=== PATIENT | female | born 1990 | race Caucasian/White ===

== ENCOUNTER 2016-07-28 13:52 | Emergency (ER) | payer OTHER ==
[2016-07-28 13:57] VITALS: TEMP 98; BMI 33.5
--- NOTE | 2016-07-28 14:17 | PDOC ---
[id number] No Limitations - History of Present Illness Initial Comments: 07/28/16 14:29 The patient is a 26 year old female with significant past medical history of right kidney stone s/p stent placement 07/19/16 and asthma who presents to the emergency department with right flank pain and hematuria for 9 days. The patient states that she had the stent placed and then corrected, most recent surgery was 9 days ago. She states she has been having pain since the surgery. She tried to see her urologist today but the office rescheduled her appointment for next week. The patient was in constant pain so she came to the ED. Her pain is sharp and constant, does not radiate. She reports associated hematuria. She denies dysuria. She denies recent illness, fevers, or chills. Urologist: Dr. Padilla Rucker PMD: Dr. Love <Gris Gan - Last Filed: 07/28/16 14:30> <Cisco Sandoval - Last Filed: 09/18/16 10:18> - General Chief Complaint: Pain, Acute Stated Complaint: PCP SENT,Rt flank pain, s/p stent Time Seen by Provider: 07/28/16 14:15 Past History <Gris Gan - Last Filed: 07/28/16 14:30> - Past Medical History Asthma: Yes Cardiac Disorders: Yes ([place] 2015) Suicide Attempt (Hx): No - Surgical History Abdominal Surgery: Yes - Immunization History Immunization Up to Date: Yes - Psycho/Social/Smoking Cessation Hx Anxiety: No Suicidal Ideation: No Smoking Status: Yes Smoking History: Current every day smoker Have you smoked in the past 12 months: Yes Number of Cigarettes Smoked Daily: 5 Information on smoking cessation initiated: Yes 'Breaking Loose' booklet given: 07/28/16 Hx Alcohol Use: No Drug/Substance Use Hx: No Substance Use Type: None <Cisco Sandoval - Last Filed: 09/18/16 10:18> - Past Medical History Allergies/Adverse Reactions: Allergies Allergy/AdvReac Type Severity Reaction Status Date / Time No Known Allergies Allergy Verified 07/28/16 13:57 Home Medications: Ambulatory Orders Lactulose 20 gm PO DAILY #7 ml 08/01/16 Oxycodone HCl/Acetaminophen [Percocet 5-325 mg Tablet] 1 tab PO Q4H 08/01/16 Review of Systems - Review of Systems Able to Perform ROS?: Yes Comments:: 07/28/16 14:29 GENERAL/CONSTITUTIONAL: No fever or chills. No weakness. HEAD, EYES, EARS, NOSE AND THROAT: No change in vision. No ear pain or discharge. No sore throat. CARDIOVASCULAR: No chest pain or shortness of breath. RESPIRATORY: No cough, wheezing, or hemoptysis. GASTROINTESTINAL: No nausea, vomiting, diarrhea or constipation. GENITOURINARY: +Hematuria. No dysuria, frequency, or change in urination. MUSCULOSKELETAL: +Right flank pain. No joint or muscle swelling or pain. No neck pain. SKIN: No rash NEUROLOGIC: No headache, vertigo, loss of consciousness, or change in strength/ sensation. ENDOCRINE: No increased thirst. No abnormal weight change. HEMATOLOGIC/LYMPHATIC: No anemia, easy bleeding, or history of blood clots. ALLERGIC/IMMUNOLOGIC: No hives or skin allergy. <Gris Gan - Last Filed: 07/28/16 14:30> *Physical Exam - Vital Signs Last Vital Signs Temp Pulse Resp BP Pulse Ox 98 F 97 H 18 138/88 100 07/28/16 13:55 07/28/16 13:55 07/28/16 13:55 07/28/16 13:55 07/28/16 13:55 - Physical Exam Comments: 07/28/16 14:29 GENERAL: Awake, alert, and fully oriented, in no acute distress HEAD: No signs of trauma EYES: PERRLA, EOMI, sclera anicteric, conjunctiva clear ENT: Auricles normal inspection, hearing grossly normal, nares patent, oropharynx clear without exudates. Moist mucosa NECK: Normal ROM, supple, no lymphadenopathy, JVD, or masses LUNGS: Breath sounds equal, clear to auscultation bilaterally. No wheezes, and no crackles HEART: Regular rate and rhythm, normal S1 and S2, no murmurs, rubs or gallops ABDOMEN: +Right CVA tenderness. Soft, nontender, normoactive bowel sounds. No guarding, no rebound. No masses EXTREMITIES: Normal range of motion, no edema. No clubbing or cyanosis. No cords, erythema, or tenderness NEUROLOGICAL: Cranial nerves II through XII grossly intact. Normal speech, normal gait SKIN: Warm, Dry, normal turgor, no rashes or lesions noted. <Gris Gan - Last Filed: 07/28/16 14:30> - Vital Signs Last Vital Signs Temp Pulse Resp BP Pulse Ox 98 F 97 H 18 138/88 100 07/28/16 13:55 07/28/16 13:55 07/28/16 13:55 07/28/16 13:55 07/28/16 13:55 <Cisco Sandoval - Last Filed: 09/18/16 10:18> ED Treatment Course - LABORATORY CBC & Chemistry Diagram: 07/28/16 15:40 07/28/16 17:12 <Cisco Sandoval - Last Filed: 09/18/16 10:18> *DC/Admit/Observation/Transfer - Attestations Scribe Attestion: 07/28/16 14:29 Documentation prepared by Gris Gan, acting as veterinary medical officer for Cisco Sandoval DO. <Gris Gan - Last Filed: 07/28/16 14:30> - Attestations Physician Attestion: 07/28/16 14:17 I, Dr. Cisco Sandoval, attest that this document has been prepared under my direction and personally reviewed by me in its entirety. I further attest, that it accurately reflects all work, treatment, procedures and medical decision -making performed by me. <Cisco Sandoval - Last Filed: 09/18/16 10:18> Diagnosis at time of Disposition: Pain due to ureteral stent Qualifiers: Encounter type: initial encounter Qualified Code(s): T83.84XA - Pain due to genitourinary prosthetic devices, implants and grafts, initial encounter - Discharge Dispostion Disposition: HOME Condition at time of disposition: Improved - Referrals Referrals: Padilla Rucker MD [Staff Physician] - 3 days - Patient Instructions Additional Instructions: IBUPROFEN, 600 MG 4 TIMES A DAY PLENTY OF FLUIDS (WATER) SEE DR. RUCKER PLANNED RETURN IF WORSENING OR NEW SYMPTOMS
[2016-07-28 15:50] LABS: BASOPHIL 0.5 % (0-2.0); EOSINOPHIL 6.9 % (0-4.5); MCH 31.6 pg (25.7-33.7); MCHC 33.5 g/dl (32.0-36.0); MEAN CELL VOLUME 94.2 fl (80-96); MEAN PLT VOLUME 9.9 fl (7.5-11.1); NEUTROPHILS 64.1 % (42.8-82.8); PLATELET COUNT 203 K/MM3 (134-434); RDW 12.5 % (11.6-15.6); WHITE BLOOD COUNT 6.1 K/mm3 (4.0-10.0)
[2016-07-28 16:09] LABS: INR 1.05 (0.82-1.09); PROTHROMBIN TIME (PATIENT) 11.6 SEC (9.98-11.88)
[2016-07-28] MEDS ORDERED: ONDANSETRON *ODT* 4 MG TABLET SL ONE (16:29)
[2016-07-28] MEDS ORDERED: OXYCODONE/APAP 5/325MG COMBO TABLET PO ONE (16:29)
[2016-07-28] MEDS ORDERED: OXYCODONE/APAP 5/325MG COMBO TABLET ONE (16:32)
[2016-07-28] MEDS ORDERED: ONDANSETRON 8 MG TABLET (FP) PO ONE (16:32)
[2016-07-28 17:24] LABS: PH,URINE 7.5 (5.0-8.0); URINE APPEARANCE CLOUDY; URINE BILIRUBIN NEGATIVE (NEGATIVE); URINE COLOR LT. YELLOW; URINE GLUCOSE (UA) NEGATIVE (NEGATIVE); URINE KETONE NEGATIVE (NEGATIVE); URINE NITRITE NEGATIVE (NEGATIVE); URINE PROTEIN TRACE (NEGATIVE); URINE UROBILINOGEN 0.2 E.U/dl E.U./dl (0.2-1.0)
[2016-07-28 17:26] LABS: URINE BLOOD 3+ (NEGATIVE); URINE LEUK ESTERASE 1+ (NEGATIVE)
[2016-07-28 17:39] LABS: URINE BACTERIA FEW /hpf (NONE SEEN); URINE MUCUS FEW; URINE RBC 80-100 /hpf (0-3)
[2016-07-28 18:03] LABS: ALBUMIN 3.4 g/dl (3.4-5.0); BILIRUBIN,TOTAL 0.4 mg/dL (0.2-1.0); CALCIUM 8.8 mg/dL (8.5-10.1); CREATININE 1.2 mg/dL (0.55-1.02); TOT PROT 6.5 g/dl (6.4-8.2)
[2016-07-28 18:39] VITALS: BP 132/75; PULSE 85
[2016-07-28] MEDS ORDERED: KETOROLAC TROMETHAMINE 30 MG/1 ML VIAL IVPUSH ONE (19:47)
--- NOTE | 2016-07-28 19:52 | PDOC ---
*Physical Exam - Vital Signs Last Vital Signs Temp Pulse Resp BP Pulse Ox 98 F 85 16 132/75 98 07/28/16 13:55 07/28/16 17:05 07/28/16 17:05 07/28/16 17:05 07/28/16 17:05 - Physical Exam General Appearance: Yes: Nourished, Appropriately Dressed. No: Apparent Distress Gastrointestinal/Abdominal: positive: Normal Bowel Sounds, Soft. negative: Tender Musculoskeletal: negative: CVA Tenderness ED Treatment Course - LABORATORY CBC & Chemistry Diagram: 07/28/16 15:40 07/28/16 17:12 - ADDITIONAL ORDERS Additional order review: Laboratory Results 07/28/16 07/28/16 07/28/16 17:12 16:00 15:40 INR Sodium 141 Cancelled Potassium 5.3 H D Cancelled Chloride 111 H Cancelled Carbon Dioxide 25 Cancelled Anion Gap 5 L Cancelled BUN 20 H D Cancelled Creatinine 1.2 H Cancelled Creat Clearance w eGFR 54.30 Cancelled Random Glucose 86 Cancelled Calcium 8.8 Cancelled Total Bilirubin 0.4 D Cancelled AST 16 D Cancelled ALT 19 D Cancelled Alkaline Phosphatase 54 D Cancelled Total Protein 6.5 Cancelled Albumin 3.4 Cancelled Serum , Qual Negative Urine Color Lt. yellow Urine Appearance Cloudy Urine pH 7.5 D Ur Specific [place] 1.020 Urine Protein Trace H Urine Glucose (UA) Negative Urine Ketones Negative Urine Blood 3+ H Urine Nitrite Negative Urine Bilirubin Negative Urine Urobilinogen 0.2 e.u/dl Ur Leukocyte Esterase 1+ H D Urine RBC 80-100 Urine WBC 10-15 Ur Epithelial Cells Few Urine Bacteria Few Urine Mucus Few 07/28/16 15:40 INR 1.05 Sodium Potassium Chloride Carbon Dioxide Anion Gap BUN Creatinine Creat Clearance w eGFR Random Glucose Calcium Total Bilirubin AST ALT Alkaline Phosphatase Total Protein Albumin Serum , Qual Urine Color Urine Appearance Urine pH Ur Specific [place] Urine Protein Urine Glucose (UA) Urine Ketones Urine Blood Urine Nitrite Urine Bilirubin Urine Urobilinogen Ur Leukocyte Esterase Urine RBC Urine WBC Ur Epithelial Cells Urine Bacteria Urine Mucus 07/28/16 15:40 RBC 4.21 MCV 94.2 MCHC 33.5 RDW 12.5 MPV 9.9 Neutrophils % 64.1 Lymphocytes % 21.6 Monocytes % 6.9 Eosinophils % 6.9 H Basophils % 0.5 - Medications Given in the ED: ED Medications Discontinued Medications Generic Name Dose Route Start Last Admin Trade Name Desean PRN Reason Stop Dose Admin Ondansetron HCl 8 mg 07/28/16 16:29 07/28/16 16:38 Zofran Odt - SL 07/28/16 16:30 8 mg ONCE ONE Administration Oxycodone/Acetaminophen 2 combo 07/28/16 16:29 07/28/16 16:38 Percocet 5/325 - PO 07/28/16 16:30 2 combo ONCE ONE Administration Progress Note - Progress Note Progress Note: D/W DR. RUCKER AND PATIENT IBUPROFEN INSTEAD OF NARCOTICS F/U MONDAY *DC/Admit/Observation/Transfer Diagnosis at time of Disposition: Pain due to ureteral stent Qualifiers: Encounter type: initial encounter Qualified Code(s): T83.84XA - Pain due to genitourinary prosthetic devices, implants and grafts, initial encounter - Discharge Dispostion Disposition: HOME Condition at time of disposition: Improved - Referrals Referrals: Padilla Rucker MD [Staff Physician] - 3 days - Patient Instructions Additional Instructions: IBUPROFEN, 600 MG 4 TIMES A DAY PLENTY OF FLUIDS (WATER) SEE DR. RUCKER PLANNED RETURN IF WORSENING OR NEW SYMPTOMS
[2016-07-28] MEDS ORDERED: KETOROLAC TROMETHAMINE 30 MG/1 ML VIAL ONE (19:54)
== END 2016-07-28 20:10 | disposition home or self-care (01) ==
LOC: JER 13:52
PROC: 3E0333Z Introduction of Anti-inflammatory into Peripheral Vein, Percutaneous Approach (ICD-10-PCS; principal; 2016-07-28)
DX: T83.84XA Pain due to genitourinary prosthetic devices, implants and grafts, initial encounter (principal)
CPT/HCPCS: 36415; 74176-TC; 80053; 81003; 81015; 84703; 85025; 85610; 99282-25

== ENCOUNTER 2016-08-01 15:43 | Emergency (ER) | payer OTHER ==
[2016-08-01 15:48] VITALS: TEMP 98.1; BMI 33.5
[2016-08-01] MEDS ORDERED: KETOROLAC TROMETHAMINE 30 MG/1 ML VIAL IM ONE (19:45)
[2016-08-01] MEDS ORDERED: KETOROLAC TROMETHAMINE 30 MG/1 ML VIAL ONE (19:57)
--- NOTE | 2016-08-01 20:02 | PDOC ---
History of Present Illness - General Chief Complaint: Pain, Acute Stated Complaint: KIDNEY PAIN Time Seen by Provider: 08/01/16 19:32 - History of Present Illness Initial Comments: 08/01/16 20:01 CHIEF COMPLAINT: 26 yo F HISTORY OF PRESENT ILLNESS: 26 year old female with significant past medical history of right kidney stone (s/p stent placement 07/19/16) and asthma returns to the emergency department with right flank pain and hematuria for 9 days. The patient states that she had the stent placed and then corrected, most recent surgery was 9 days ago. She states she has been having pain since the surgery. She denies any nausea, vomiting, or diarrhea. Patient was seen No recent travel or sick contacts. PAST MEDICAL HISTORY: Denies past medical history FAMILY HISTORY: Denies SOCIAL HISTORY:Denies tobacco, alcohol, illicit drug use. SURGICAL HISTORY: Denies ALLERGIES: No known drug allergies REVIEW OF SYSTEMS General/Constitutional: Denies fever or chills. Denies weakness, weight change. HEENT: Denies change in vision. Denies ear pain or discharge. Denies sore throat. Cardiovascular: Denies chest pain or shortness of breath. Respiratory: Denies cough, wheezing, or hemoptysis. Gastrointestinal: RLQ pain. Denies nausea, vomiting, diarrhea. Genitourinary: Denies dysuria, frequency, or change in urination. Musculoskeletal: Denies joint or muscle swelling or pain. Denies neck or back pain. Skin and breasts: Denies rash or easy bruising. Neurologic: Denies headache, vertigo, loss of consciousness, or loss of sensation. PHYSICAL EXAM General Appearance: Well-appearing, appropriately dressed. No apparent distress , no intoxication. HEENT: EOMI, PERRLA, normal ENT inspection, normal voice, TMs normal, pharynx normal. No conjunctival pallor. No photophobia, scleral icterus. Neck: Supple. Trachea midline. No tenderness, rigidity, carotid bruit, stridor , lymphadenopathy, or thyromegaly. Respiratory/Chest: Lungs CTAB. No shortness of breath, chest tenderness, respiratory distress, accessory muscle use. No crackles, rales, rhonchi, stridor , wheezing, dullness Cardiovascular: RRR. S1, S2. No JVD, murmur, bradycardia, tachycardia. Vascular Pulses: Dorsalis-Pedis (R): 2+, Dorsalis-Pedis (L): 2+ Gastrointestinal/Abdominal: RLQ tenderness. Normal bowel sounds. Abdomen soft, non-distended. No tenderness or rebound tenderness. No organomegaly, pulsatile mass, guarding, hernia, hepatomegaly, splenomegaly. Lymphatic: No adenopathy, tenderness. Musculoskeletal/Extremities: Normal inspection. FROM of all extremities, normal capillary refill. Pelvis Stable. No CVA tenderness. No tenderness to extremities, pedal edema, swelling, erythema or deformity. Integumentary: Appropriate color, dry, warm. No cyanosis, erythema, jaundice or rash Neurologic: channel marketing program manager II-XII intact. Fully oriented, alert. Appropriate mood/affect. Motor strength 5/5. No appreciable EOM palsy, facial droop or sensory deficit. Past History - Past Medical History Allergies/Adverse Reactions: Allergies Allergy/AdvReac Type Severity Reaction Status Date / Time No Known Allergies Allergy Verified 08/01/16 15:46 Home Medications: Ambulatory Orders Lactulose 20 gm PO DAILY #7 ml 08/01/16 Oxycodone HCl/Acetaminophen [Percocet 5-325 mg Tablet] 1 tab PO Q4H 08/01/16 Asthma: Yes Cardiac Disorders: Yes ([place] 2015) Suicide Attempt (Hx): No - Surgical History Abdominal Surgery: Yes - Immunization History Immunization Up to Date: Yes - Psycho/Social/Smoking Cessation Hx Anxiety: No Suicidal Ideation: No Smoking Status: Yes Smoking History: Current every day smoker Have you smoked in the past 12 months: Yes Number of Cigarettes Smoked Daily: 5 Information on smoking cessation initiated: No 'Breaking Loose' booklet given: 07/28/16 Hx Alcohol Use: No Drug/Substance Use Hx: No Substance Use Type: None *Physical Exam - Vital Signs Last Vital Signs Temp Pulse Resp BP Pulse Ox 98.1 F 77 18 120/72 99 08/01/16 15:47 08/01/16 15:47 08/01/16 15:47 08/01/16 15:47 08/01/16 15:47 Medical Decision Making - Medical Decision Making 08/01/16 22:28 26 year old female with significant past medical history of right kidney stone ( s/p stent placement 07/19/16) and asthma returns to the emergency department with right flank pain and hematuria for 9 days. At this time she reports that her last bowel movement was 3 days ago and she reports that she is has not been passing gas today. She now reports that she has been nauseous for the past few days. Abdominal x-ray, r/o SBO. X-ray with no evidence of SBO, large amount of stool. Will discharge patient with Lactulose and close follow up. Advised patient to take medication as prescribed and follow up with urologist for further evaluation and management of kidney pain. Advised patient of signs and symptoms for return to ER; patient verbalized understanding and agrees to plan. *DC/Admit/Observation/Transfer Diagnosis at time of Disposition: Constipation Qualifiers: Constipation type: unspecified constipation type Qualified Code(s): K59.00 - Constipation, unspecified - Discharge Dispostion Disposition: HOME Condition at time of disposition: Stable Admit: No - Prescriptions Prescriptions: Lactulose 20 gm PO DAILY #7 ml - Referrals Referrals: Onesimo Love MD [Primary Care Provider] - - Patient Instructions Printed Discharge Instructions: DI for Constipation, Increased Dietary Fiber May Improve Constipation Conditions With Pelvic Jourdan Additional Instructions: Please take medication as prescribed and follow up with your primary care doctor by the end of the week. Please keep your appointment with your urologist on . If you experience any fever, vomiting, diarrhea, blood in your urine or bowel movements, or any new or worsening symptoms, please return to the ER.
--- NOTE | 2016-08-01 20:04 | PDOC ---
*Physical Exam - Vital Signs Last Vital Signs Temp Pulse Resp BP Pulse Ox 98.1 F 77 18 120/72 99 08/01/16 15:47 08/01/16 15:47 08/01/16 15:47 08/01/16 15:47 08/01/16 15:47 Medical Decision Making - Medical Decision Making 08/01/16 20:04 agree with care from ARTURO Collins *DC/Admit/Observation/Transfer Diagnosis at time of Disposition: Constipation - Discharge Dispostion Disposition: HOME Condition at time of disposition: Stable - Prescriptions Prescriptions: Lactulose 20 gm PO DAILY #7 ml - Referrals Referrals: Onesimo Love MD [Primary Care Provider] - - Patient Instructions Printed Discharge Instructions: Increased Dietary Fiber May Improve Constipation Conditions With Pelvic Jourdan, DI for Constipation Additional Instructions: Please take medication as prescribed and follow up with your primary care doctor by the end of the week. Please keep your appointment with your urologist on . If you experience any fever, vomiting, diarrhea, blood in your urine or bowel movements, or any new or worsening symptoms, please return to the ER.
[2016-08-01] MEDS ORDERED: traMADol HCL 50 MG TABLET PO ONE (23:16)
[2016-08-01] MEDS ORDERED: traMADol HCL 50 MG TABLET ONE (23:24)
[2016-08-02 00:08] VITALS: BP 122/76; PULSE 82
== END 2016-08-02 00:12 | disposition home or self-care (01) ==
LOC: JER 15:43
PROC: 3E0233Z Introduction of Anti-inflammatory into Muscle, Percutaneous Approach (ICD-10-PCS; principal; 2016-08-01)
DX: K59.00 Constipation, unspecified (principal); Z98.890 Other specified postprocedural states
CPT/HCPCS: 74020-TC; 84703; 96372; 99282-25

== ENCOUNTER 2017-02-17 19:07 | Emergency (ER) | payer OTHER ==
--- NOTE | 2017-02-17 19:14 | PDOC ---
History of Present Illness - History of Present Illness Initial Comments: 02/17/17 20:00 The patient is a 27 year old female, with no significant past medical history, who presents to the emergency department with right ankle blister. Patient believes she was bitten by a spider. Pain radiates from her medial calf down to her ankle. The bite was initially white in color and grew considerably in size and is now blistered. The area around the bite is erythematous. The area is warm , painful and doesnt itch. She states pressure makes it worse. Elevating her leg helps lessen the pain. She said she took Motrin and it didn't help. She also reports diarrhea (x4) today. She denies recent fevers, chills, headache or dizziness. She denies recent nausea, vomit, constipation. She denies recent dysuria, frequency, urgency or hematuria. She denies recent chest pain or shortness of breath. PMH: Allergies: NKA PCP: Onesimo Love <Tracy Summers - Last Filed: 02/17/17 21:07> <Dre Samuel - Last Filed: 02/26/17 15:04> - General Chief Complaint: Redness To Affected Area Stated Complaint: RIGHT ANKLE REDNESS Time Seen by Provider: 02/17/17 19:09 Past History <Tracy Summers - Last Filed: 02/17/17 21:07> - Past Medical History Asthma: Yes Cardiac Disorders: Yes ([place], [place] 2015) - Surgical History Abdominal Surgery: Yes - Immunization History Immunization Up to Date: Yes - Suicide/Smoking/Psychosocial Hx Smoking Status: Yes Smoking History: Current every day smoker Have you smoked in the past 12 months: Yes Number of Cigarettes Smoked Daily: 5 'Breaking Loose' booklet given: 07/28/16 Hx Alcohol Use: No Drug/Substance Use Hx: No Substance Use Type: None <Dre Samuel - Last Filed: 02/26/17 15:04> - Past Medical History Allergies/Adverse Reactions: Allergies Allergy/AdvReac Type Severity Reaction Status Date / Time No Known Allergies Allergy Verified 02/17/17 19:09 Home Medications: Ambulatory Orders Naproxen [Naprosyn -] 375 mg PO BID PRN #30 tablet 02/17/17 Sulfamethoxazole/Trimethoprim [Bactrim Ds -] 1 tab PO BID #14 tablet 02/17/17 Review of Systems - Review of Systems Comments:: 02/17/17 20:00 CONSTITUTIONAL: Present: Diarrhea Absent: Fever, Chills, Diaphoresis, Generalized Weakness, Malaise, Loss of Appetite HEENT: Absent: Rhinorrhea, Nasal Congestion, Throat Pain, Throat Swelling, Difficulty Swallowing, Mouth Swelling, Ear Pain, Eye Pain, Visual Changes CARDIOVASCULAR: Absent: Chest Pain, Syncope, Palpitations, Irregular Heart Rate, Lightheadedness , Peripheral Edema MUSCULOSKELETAL: Absent: Myalgia, Arthralgia, Joint Swelling, Back pain, Neck Pain SKIN: Present: +right buenrostro errythema. +pus-filled blister Absent: Itching, Pallor <Tracy Summers - Last Filed: 02/17/17 21:07> *Physical Exam - Vital Signs Last Vital Signs Temp Pulse Resp BP Pulse Ox 98.2 F 99 H 16 120/80 98 02/17/17 19:08 02/17/17 19:08 02/17/17 19:08 02/17/17 19:08 02/17/17 19:08 - Physical Exam Comments: 02/17/17 20:14 GENERAL: The patient is awake, alert, and fully oriented, in no acute distress. HEAD: Normal with no signs of trauma. EYES: Pupils equal, round and reactive to light, extraocular movements intact, sclera anicteric, conjunctiva clear. EXTREMITIES: Normal range of motion. Sensation intact. Circulation intact. NEUROLOGICAL: Normal speech, normal gait. PSYCH: Normal mood, normal affect. SKIN: + Silver dollar sized blister on the right medial buenrostro with clear fluid and pus inside. Surrounding erythema radiating out from the wound. <Tracy Summers - Last Filed: 02/17/17 21:07> Procedures - Incision and Drainage I&D Site: Right: Leg Betadine cleansed: Yes Blade Size: 10 Dressing: Yes Progress: 02/17/17 21:00 Patient presents after an insect bite yesterday to her right leg. There is a large blister containing both clear fluid and pus on the right leg. Sterile skin prep with Betadine. Blister opened with a scalpel, pus drained, irrigated with normal saline. Bacitracin applied, dry sterile dressing applied with guaze and elastic bandage. <Dre Samuel - Last Filed: 02/26/17 15:04> Medical Decision Making - Medical Decision Making 02/17/17 21:02 Patient here with an insect bite from yesterday. There is a large central blister on examination with both clear fluid and cheesy pus material. There is surrounding erythema on the right medial calf. Patient denies fever. She has no other significant past medical history. The blister was opened to drain the pus. Culture was sent. Bactrim was started. Patient given Naprosyn for pain. Dry sterile dressing applied. Patient advised regarding wound care and indications for follow-up. She will go to Dr. Pollock next week, her primary M.D. for follow-up of the wound. 02/26/17 15:03 The scribe's documentation has been prepared under my direction and personally reviewed by me in its entirety. I have confirmed that the note above accurately reflects all work, treatment, procedures, and medical decision- making performed by me. 02/26/17 15:04 Patient was placed on Bactrim at the time of her visit. Her culture grew MRSA sensitive to Bactrim. No change in antibiotics was indicated. <Dre Samuel - Last Filed: 02/26/17 15:04> *DC/Admit/Observation/Transfer - Attestations Scribe Attestion: 02/17/17 20:03 Documentation prepared by Tracy Summers, acting as senior medical transcriptionist for Dre Samuel MD. <Tracy Summers - Last Filed: 02/17/17 21:07> - Discharge Dispostion Admit: No <Dre Samuel - Last Filed: 02/26/17 15:04> Diagnosis at time of Disposition: Insect bite Qualifiers: Encounter type: initial encounter Qualified Code(s): W57.XXXA - Bitten or stung by nonvenomous insect and other nonvenomous arthropods, initial encounter Cellulitis Qualifiers: Site of cellulitis of extremity: lower extremity Laterality: right - Discharge Dispostion Disposition: HOME Condition at time of disposition: Good - Prescriptions Prescriptions: Sulfamethoxazole/Trimethoprim [Bactrim Ds -] 1 tab PO BID #14 tablet Naproxen [Naprosyn -] 375 mg PO BID PRN #30 tablet PRN Reason: Pain - Referrals Referrals: Onesimo Love MD [Primary Care Provider] - 3 days - Patient Instructions Printed Discharge Instructions: Tips to Help You Stop Smoking, DI for Insect Bites and Stings Additional Instructions: You were evaluated today for an insect bite to her right leg. There was blister formation which was opened to drain the pus. There is redness around the wound which will be treated with antibiotics. A prescription for antibiotics as well as pain medication has been sent here pharmacy electronically. Start the medication tomorrow morning. Follow-up with Dr. Pollock on Monday for a wound check. Return to the emergency department for any progression of symptoms such as increasing redness, fever, or any other serious symptoms.
[2017-02-17 19:43] VITALS: BP 120/80; PULSE 99; TEMP 98.2; BMI 35.5
[2017-02-17] MEDS ORDERED: SULFAMETHOXAZOLE/TRIMETHOPRIM 800MG/160MG D.S. TABLET PO ONE (20:07)
[2017-02-17] MEDS ORDERED: NAPROXEN 375 MG TABLET (FP) PO ONE ×2 (20:07→20:30)
[2017-02-17] MEDS ORDERED: SULFAMETHOXAZOLE/TRIMETHOPRIM 800MG/160MG D.S. TABLET ONE (20:20)
[2017-02-17] MEDS ORDERED: NAPROXEN 500 MG TABLET (FP) ONE (21:06)
--- NOTE | 2017-02-19 18:04 | PDOC ---
Patient Follow-up (Call Back) - Post ED Follow - Up Condition at time of discharge: Good Disposition at time of original discharge: HOME Reason for Call Back: Abnwl. Microbiology - Disposition Rx Needed: No Additional Instructions/Notes: Received a call from lab regarding wound culture - growing presumptive MRSA. Called pt's home phone number and left message with family member with instructions for pt to call back to ER. Pt was prescribed Bactrim on initial evaluation 2 days ago - no need for change in abx regimen.
== END 2017-02-17 21:18 | disposition home or self-care (01) ==
LOC: FER 19:07
DX: S91.051A Open bite, right ankle, initial encounter (principal); W57.XXXA Bitten or stung by nonvenomous insect and other nonvenomous arthropods, initial encounter; Y93.89 Activity, other specified; Y92.9 Unspecified place or not applicable; F17.210 Nicotine dependence, cigarettes, uncomplicated; J45.909 Unspecified asthma, uncomplicated; R01.1 Cardiac murmur, unspecified
CPT/HCPCS: 87070; 87186; 87205; 99281-25

== ENCOUNTER 2017-03-15 18:40 | Emergency (ER) | payer OTHER ==
[2017-03-15 18:44] VITALS: BP 126/79; PULSE 102; TEMP 98.6; BMI 35.5
[2017-03-15 19:31] LABS: PH,URINE 5.5 (4.5-8); URINE APPEARANCE Clear; URINE BILIRUBIN Negative (NEGATIVE); URINE BLOOD Negative (NEGATIVE); URINE GLUCOSE (UA) Negative (NEGATIVE); URINE KETONE Trace (NEGATIVE); URINE NITRITE Negative (NEGATIVE); URINE PROTEIN Negative (NEGATIVE); URINE UROBILINOGEN 0.2 (0.2-1.0)
[2017-03-15 19:33] LABS: URINE COLOR YELLOW; URINE LEUK ESTERASE 2+ (NEGATIVE)
--- NOTE | 2017-03-15 19:46 | PDOC ---
History of Present Illness - General History Source: Patient Exam Limitations: No Limitations - History of Present Illness Initial Comments: 03/15/17 19:58 The patient is a 27 year old female with significant history of asthma, COPD, and cigarette smoking, who presents to the ED complaining of approximately 3 weeks of persistent nausea, diarrhea, and productive cough with associate fever (Tmax 103). She describes her diarrhea as greenish in color and watery in nature with several episodes occuring per day. Her cough is productive with yellow sputum with associated chest discomfort and mild SOB. She also complains of associated generalized headache and generalized malaise. The patient denies abdominal pain, vomiting, or constipation. No true chest pain. No urinary complaints. LMP March 11. Not up to date on this year's flu vaccination. <Twila Dubon - Last Filed: 03/15/17 20:24> <Edwin Valdes - Last Filed: 03/16/17 01:46> - General Chief Complaint: Vomiting/Diarrhea Stated Complaint: vomiting,diarrhea Time Seen by Provider: 03/15/17 19:40 Past History <Twila Dubon - Last Filed: 03/15/17 20:24> - Past Medical History Asthma: Yes Cardiac Disorders: Yes ([place], [place] 2014) COPD: No Kidney Stones: Yes (ST[place]) - Surgical History Abdominal Surgery: Yes - Immunization History Immunization Up to Date: Yes - Suicide/Smoking/Psychosocial Hx Smoking Status: Yes Smoking History: Current every day smoker Have you smoked in the past 12 months: Yes Number of Cigarettes Smoked Daily: 5 Information on smoking cessation initiated: Yes 'Breaking Loose' booklet given: 03/15/17 Hx Alcohol Use: No Drug/Substance Use Hx: No Substance Use Type: None <Edwin Valdes - Last Filed: 03/16/17 01:46> - Past Medical History Allergies/Adverse Reactions: Allergies Allergy/AdvReac Type Severity Reaction Status Date / Time No Known Allergies Allergy Verified 03/15/17 18:41 Home Medications: Ambulatory Orders Fexofenadine/Pseudoephedrine [Patricia-D 24 Hour Tablet] 1 tab PO DAILY #10 tab.er.24h 03/15/17 Guaifenesin AC [Robitussin AC] 10 ml PO TID PRN #90 ml MDD 30 03/15/17 Naproxen [Naprosyn] 375 mg PO BID #14 tablet 03/15/17 Respiratory Specific PMHX - Complaint Specific PMHX Angina: No Bronchitis: No Pneumonia: No Pulmonary Embolus: No TB (Tuberculosis): No <Edwin Valdes - Last Filed: 03/16/17 01:46> Review of Systems - Review of Systems Able to Perform ROS?: Yes Comments:: 03/15/17 20:02 GENERAL/CONSTITUTIONAL: +Fever (tmax 103), +malaise HEAD, EYES, EARS, NOSE AND THROAT: No change in vision. No ear pain or discharge. No sore throat. GASTROINTESTINAL: +Nausea, multiple episodes of diarrhea. No blood per rectum. No abdominal pain, vomiting, constipation. GENITOURINARY: No dysuria, frequency, or change in urination. CARDIOVASCULAR: No true chest pain or palpitations. RESPIRATORY: +Productive cough w yellow sputum, +mild dyspnea. No hemoptysis. MUSCULOSKELETAL: No joint or muscle swelling or pain. No neck or back pain. SKIN: No rash NEUROLOGIC: +Diffuse QUEVEDO. No vertigo, loss of consciousness, or change in strength/sensation. ENDOCRINE: No increased thirst. No abnormal weight change. HEMATOLOGIC/LYMPHATIC: No anemia, easy bleeding, or history of blood clots. ALLERGIC/IMMUNOLOGIC: No hives or skin allergy. <Twila Dubon - Last Filed: 03/15/17 20:24> *Physical Exam - Vital Signs Last Vital Signs Temp Pulse Resp BP Pulse Ox 98.6 F 102 H 18 126/79 100 03/15/17 18:40 03/15/17 18:40 03/15/17 18:40 03/15/17 19:55 03/15/17 18:40 - Physical Exam Comments: 03/15/17 20:05 GENERAL: Awake, alert, and fully oriented, in no acute distress HEAD: No signs of trauma EYES: PERRLA, EOMI, sclera anicteric, conjunctiva clear ENT: +Mildly injected throat with no exudates, swelling, or masses. +Mild to moderate nasal congestion, no discharge or drainage. Auricles normal inspection , hearing grossly normal. Moist mucosa NECK: Normal ROM, supple, no lymphadenopathy, JVD, or masses LUNGS: Breath sounds equal, clear to auscultation bilaterally. No wheezes, and no crackles HEART: Regular rate and rhythm, normal S1 and S2, no murmurs, rubs or gallops ABDOMEN: Soft, nontender, normoactive bowel sounds. No guarding, no rebound. No masses. No CABT. EXTREMITIES: Normal range of motion, no edema. No clubbing or cyanosis. No cords, erythema, or tenderness BACK: No midline spinal tenderness in cervical/thoracic/lumbar region NEUROLOGICAL: Normal speech, cranial nerves intact, negative pronator drift, 5/ 5 strength in all 4 extremities, normal sensation to light touch in all 4 extremities, normal cerebellar exam, normal gait, normal reflexes and tone SKIN: Warm, Dry, normal turgor, no rashes or lesions noted. <Twila Dubon - Last Filed: 03/15/17 20:24> - Vital Signs Last Vital Signs Temp Pulse Resp BP Pulse Ox 98.6 F 102 H 18 126/79 100 03/15/17 18:40 03/15/17 18:40 03/15/17 18:40 03/15/17 18:40 03/15/17 18:40 <Edwin Valdes - Last Filed: 03/16/17 01:46> ED Treatment Course - LABORATORY CBC & Chemistry Diagram: 03/15/17 19:55 03/15/17 19:55 - ADDITIONAL ORDERS Additional order review: Laboratory Results 03/15/17 19:25 Urine Color Yellow Urine Appearance Clear Urine pH 5.5 Ur Specific Wellman >= 1.030 H Urine Protein Negative Urine Glucose (UA) Negative Urine Ketones Trace Urine Blood Negative Urine Nitrite Negative Urine Bilirubin Negative Urine Urobilinogen 0.2 Ur Leukocyte Esterase 2+ H Urine RBC 0-2 Urine WBC 20-30 Ur Epithelial Cells Few Urine Bacteria Moderate Urine HCG, Qual Negative <Twila Dubon - Last Filed: 03/15/17 20:24> - LABORATORY CBC & Chemistry Diagram: 03/15/17 19:55 03/15/17 19:55 - ADDITIONAL ORDERS Additional order review: Laboratory Results 03/15/17 19:25 Urine Color Yellow Urine Appearance Clear Urine pH 5.5 Ur Specific Wellman >= 1.030 H Urine Protein Negative Urine Glucose (UA) Negative Urine Ketones Trace Urine Blood Negative Urine Nitrite Negative Urine Bilirubin Negative Urine Urobilinogen 0.2 Ur Leukocyte Esterase 2+ H Urine HCG, Qual Negative <Edwin Valdes - Last Filed: 03/16/17 01:46> Medical Decision Making - Medical Decision Making 03/16/17 01:43 URI symptoms, nonproductive cough, nausea vomiting and diarrhea, all suggestive of a viral syndrome, possibly flu. Nobody else however is ill in the family, and the symptoms have been present over 1 week. CBC, chemistries, and urinalysis with no significant abnormalities other than a urine specific gravity of greater than 1030 and the presence of 20 white blood cells. Tamiflu unlikely to be of benefit, symptomatic treatment and close follow-up as directed Pyuria present, but no urinary tract symptoms, culture sent and further treatment if culture is positive. Patient with symptoms much improved after intravenous hydration and Toradol. Fully ambulatory and in no significant pain or other distress upon discharge with her family to follow-up as directed. <Edwin Valdes - Last Filed: 03/16/17 01:46> *DC/Admit/Observation/Transfer - Attestations Scribe Attestion: 03/15/17 20:07 Documentation prepared by Twila Dubon, acting as biomedical engineering aide for Edwin Valdes MD. <Twila Dubon - Last Filed: 03/15/17 20:24> - Discharge Dispostion Admit: No <Edwin Valdes - Last Filed: 03/16/17 01:46> Diagnosis at time of Disposition: Viral syndrome - Discharge Dispostion Disposition: HOME Condition at time of disposition: Improved - Prescriptions Prescriptions: Fexofenadine/Pseudoephedrine [Patricia-D 24 Hour Tablet] 1 tab PO DAILY #10 tab.er.24h Naproxen [Naprosyn] 375 mg PO BID #14 tablet Guaifenesin AC [Robitussin AC] 10 ml PO TID PRN #90 ml MDD 30 PRN Reason: cough and congestion - Patient Instructions Printed Discharge Instructions: DI for Viral Upper Respiratory Infection -- Adult, DI for Viral Gastroenteritis -- Adult Additional Instructions: Rest, lots of fluids, medication as directed. Do not take additional Tylenol, Motrin, Advil, ibuprofen, Aleve, or Naprosyn if taking the prescriptions that were dispensed. See primary physician if no improvement 2-3 days. Return to ER if symptoms worsen or there is high fever, difficulty breathing or swallowing, chest pain, or shortness of breath. - Post Discharge Activity Forms/Work/School Notes: Back to Work
[2017-03-15] MEDS ORDERED: SODIUM CHLORIDE 1,000 ML IV STA (19:47)
[2017-03-15 19:53] LABS: URINE BACTERIA MODERATE /hpf (NEGATIVE); URINE RBC 0-2 /hpf (0-3); URINE WBC 20-30 (3-5)
[2017-03-15 20:10] LABS: BASOPHIL 0.6 % (0-2.0); EOSINOPHIL 4.1 % (0-4.5); MCH 30.7 pg (25.7-33.7); MCHC 33.4 g/dl (32.0-36.0); MEAN CELL VOLUME 91.7 fl (80-96); MEAN PLT VOLUME 9.7 fl (7.5-11.1); NEUTROPHILS 58.4 % (42.8-82.8); PLATELET COUNT 198 K/MM3 (134-434); RDW 12.3 % (11.6-15.6); WHITE BLOOD COUNT 5.1 K/mm3 (4.0-10.8)
[2017-03-15 20:21] LABS: ALBUMIN 3.6 g/dl (3.5-5.0); ALK PHOS 51 U/L (32-92); ANION GAP 4 (8-16); BILIRUBIN,TOTAL 0.5 mg/dl (0.2-1.0); CALCIUM 9.3 mg/dl (8.4-10.2); CO2 26 mmol/L (22-28); CREATININE 0.8 mg/dl (0.6-1.3); GLUCOSE,RANDOM 108 mg/dl (74-106); SGOT/AST 19 U/L (10-42); SGPT/ALT 14 U/L (10-40); TOT PROT 6.7 g/dl (6.4-8.3)
[2017-03-15] MEDS ORDERED: KETOROLAC TROMETHAMINE 30 MG/1 ML VIAL IVPUSH ONE (20:35)
[2017-03-15] MEDS ORDERED: LORATADINE 10 MG TABLET PO ONE (20:36)
[2017-03-15] MEDS ORDERED: LORATADINE 10 MG TABLET ONE (20:38)
[2017-03-15] MEDS ORDERED: KETOROLAC TROMETHAMINE 30 MG/1 ML VIAL ONE (20:38)
== END 2017-03-15 22:23 | disposition home or self-care (01) ==
LOC: FER 18:40
PROC: 3E0333Z Introduction of Anti-inflammatory into Peripheral Vein, Percutaneous Approach (ICD-10-PCS; principal; 2017-03-15)
PROC: 3E0337Z Introduction of Electrolytic and Water Balance Substance into Peripheral Vein, Percutaneous Approach (ICD-10-PCS; 2017-03-15)
DX: B34.9 Viral infection, unspecified (principal); J44.9 Chronic obstructive pulmonary disease, unspecified; F17.210 Nicotine dependence, cigarettes, uncomplicated; R01.1 Cardiac murmur, unspecified; I25.2 Old myocardial infarction
CPT/HCPCS: 36415; 80053; 81003; 81015; 84703; 85025; 87086; 96361; 96374; 99282-25

== ENCOUNTER 2017-09-16 21:14 | Emergency (ER) | payer OTHER ==
[2017-09-16 21:31] VITALS: PULSE 88; TEMP 99.2; BMI 34.4
--- NOTE | 2017-09-16 21:35 | PDOC ---
History of Present Illness - General Chief Complaint: Weakness Stated Complaint: GENERALIZED BODYACHE Time Seen by Provider: 09/16/17 21:29 History Source: Patient Exam Limitations: No Limitations - History of Present Illness Initial Comments: 09/16/17 23:08 This is a 27-year-old female who has history of epigastric discomfort in the past. Patient comes in complaining of epigastric discomfort times all day today. Patient denies any fevers or chills. Patient said she had a similar episode in the past that was she went to [facility] for and had a workup including a CAT scan. Patient was referred to a GI doctor. But was not told what the diagnosis was. Patient denies taking any medication for it or any other medical problems. Patient denies any urinary frequency, dysuria hematuria or back or flank pain. PAST MEDICAL HISTORY: no significant history PAST SURGICAL HISTORY: no significant history FAMILY HISTORY: no pertinant history SOCIAL HISTORY: Pt lives with family and is employed. MEDICATIONS: reviewed ALLERGIES: As per nursing notes Review of Systems General: No fevers or chills, no weakness, no weight loss HEENT: No change in vision. No sore throat,. No ear pain CardioVascular: No chest pain or shortness of breath Respiratory:No cough, or wheezing. Gastrointestinal: no nausea, vomitting, diarrhea or constipation, No rectal bleeding, abdominal pain as per history of present illness Genitourinary: No dysuria, hematuria, or frequency Musculoskeletal: No joint or muscle pain or swelling Neurologic: No headache, vertigo, dizziness or loss of consciousness Psychiatric: nor depression Skin: No rashes or easy bruising Endocrine: no increased thirst or abnormal weight change Allergic: no skin or latex allergy All other systems reviewed and normal Exam: General: Well-nourished well-developed individual, no acute distress HEENT: Throat: Normal, tonsils normal, no erythema or exudate Neck: Supple, no meningeal signs, no lymphadenopathy Eyes::Pupils equal reactive and round, extraocular motion intact Chest: Nontender to palpation Cardiac: S1-S2 normal, regular rate and rhythm, no murmurs rubs or gallops Respiratory: Lungs clear to auscultation bilateral Abdomen: Soft, nondistended, normal bowel sounds, there is some mild to moderate tenderness epigastric and right upper quadrant, there is no guarding or rebound Extremities: Warm dry no cyanosis clubbing or edema Skin: No rashes Neuro: Alert and oriented x3, CN II - XII intact, nonfocal exam with normal strength, normal sensation, normal reflexes, normal gait, Psych: Normal mood and affect Ultrasound shows no acute pathology Assessment and plan: This is a 27-year-old female who comes in complaining of epigastric pain on workup patient was noted to have a urinary tract infection. She also had an ultrasound that was negative for gallstones, kidney stones or any renal pathology. Patient treated for her urinary tract infection. Patient was also noted on ultrasound to have a large gas bubble in the area of the discomfort. Patient was given simethicone and discharged. Patient told to keep her appointment with her GI specialist. Past History - Past Medical History Allergies/Adverse Reactions: Allergies Allergy/AdvReac Type Severity Reaction Status Date / Time No Known Allergies Allergy Verified 09/16/17 21:16 Home Medications: Ambulatory Orders Nitrofurantoin Macrocrystal [Macrodantin] 100 mg PO BID #14 capsule 09/16/17 Asthma: Yes Cardiac Disorders: Yes ([place], [place] 2015) COPD: No Kidney Stones: Yes ([place]) - Surgical History Abdominal Surgery: Yes - Immunization History Immunization Up to Date: Yes - Suicide/Smoking/Psychosocial Hx Smoking Status: Yes Smoking History: Never smoked Have you smoked in the past 12 months: Yes Number of Cigarettes Smoked Daily: 5 Information on smoking cessation initiated: No 'Breaking Loose' booklet given: 03/15/17 Hx Alcohol Use: No Drug/Substance Use Hx: No Substance Use Type: None *Physical Exam - Vital Signs Last Vital Signs Temp Pulse Resp BP Pulse Ox 99.2 F 88 18 117/74 99 09/16/17 21:26 09/16/17 21:26 09/16/17 21:26 09/16/17 21:26 09/16/17 21:26 ED Treatment Course - LABORATORY CBC & Chemistry Diagram: 09/16/17 22:00 09/16/17 22:00 *DC/Admit/Observation/Transfer Diagnosis at time of Disposition: Abdominal pain Qualifiers: Abdominal location: epigastric Qualified Code(s): R10.13 - Epigastric pain Urinary tract infection Qualifiers: Urinary tract infection type: acute cystitis Hematuria presence: without hematuria Qualified Code(s): N30.00 - Acute cystitis without hematuria - Discharge Dispostion Disposition: HOME Condition at time of disposition: Good Admit: No - Referrals - Patient Instructions Additional Instructions: take Macrobid 1 tablet twice a day for the urinary tract infection take this for 7 days. Tylenol or Motrin as needed for pain. Your ultrasound showed a large gas bubble in the area of your discomfort this is a possible cause of the discomfort. You were given some Gas-X type medication get some more from [id number] and you can take some additional medication as directed on the box. Keep your appointment with your GI specialist. Return to the emergency department immediately with ANY new, persistent or worsening symptoms. Continue any medications as previously prescribed by your physician. You should follow up with your primary doctor as soon as possible regarding today's emergency department visit. . Please make sure your doctor reviews the results of your emergency evaluation. Thank you for coming to the Emergency Department today for your care. It was a pleasure to see you today. Please note that your evaluation is INCOMPLETE until you follow-up with your doctor. - Post Discharge Activity
[2017-09-16] MEDS ORDERED: KETOROLAC TROMETHAMINE 30 MG/1 ML VIAL IVPUSH ONE (22:08)
[2017-09-16] MEDS ORDERED: ONDANSETRON 4 MG/2 ML VIAL IVPB ONE (22:08)
[2017-09-16] MEDS ORDERED: SODIUM CHLORIDE 1,000 ML IV ONE (22:08)
[2017-09-16 22:20] LABS: URINE APPEARANCE Slightly; URINE BILIRUBIN Negative (NEGATIVE); URINE COLOR YELLOW; URINE GLUCOSE (UA) Negative (NEGATIVE); URINE KETONE Trace (NEGATIVE); URINE LEUK ESTERASE 3+ (NEGATIVE); URINE NITRITE Negative (NEGATIVE); URINE PROTEIN 1+ (NEGATIVE)
[2017-09-16 22:22] LABS: BASO % 0.2 % (0-2.0); EOS % 4.5 % (0-4.5); HCG,QUALITATIVE URINE NEGATIVE; HEMATOCRIT 37.8 % (32.4-45.2); HEMOGLOBIN 13.2 GM/dl (10.7-15.3); LYMPH % 28.7 % (8-40); MCH 31.1 pg (25.7-33.7); MCHC 34.8 g/dl (32.0-36.0); MEAN CELL VOLUME 89.3 fl (80-96); MEAN PLT VOLUME 9.1 fl (7.5-11.1); NEUT % 59.6 % (42.8-82.8); PLATELET COUNT 182 K/MM3 (134-434); RBC 4.23 M/mm3 (3.60-5.2); RDW 12.1 % (11.6-15.6); WHITE BLOOD COUNT 5.3 K/mm3 (4.0-10.8)
[2017-09-16 22:43] LABS: URINE WBC 50-80 (0-5)
[2017-09-16 22:44] LABS: URINE MUCUS 1+
[2017-09-16 22:47] LABS: ALBUMIN 3.5 g/dl (3.5-5.0); ALK PHOS 70 U/L (32-92); ANION GAP 4 (8-16); BLOOD UREA NITROGEN 16 mg/dl (7-18); CHLORIDE 107 mmol/L (98-107); CO2 24 mmol/L (22-28); GLUCOSE,RANDOM 105 mg/dl (74-106); POTASSIUM 4.2 mmol/L (3.5-5.1); SGOT/AST 18 U/L (10-42); SGPT/ALT 14 U/L (10-40); SODIUM 135 mmol/L (136-145); TOT PROT 6.6 g/dl (6.4-8.3)
[2017-09-16 23:02] LABS: BILIRUBIN,TOTAL 0.6 mg/dl (0.2-1.0)
[2017-09-16] MEDS ORDERED: KETOROLAC TROMETHAMINE 30 MG/1 ML VIAL ONE (23:05)
[2017-09-16] MEDS ORDERED: ONDANSETRON 4 MG/2 ML VIAL ONE ×2 (23:06)
[2017-09-16] MEDS ORDERED: SIMETHICONE 80 MG TAB.CHEW (FP) PO STA (23:10)
[2017-09-16] MEDS ORDERED: NITROFURANTOIN MACROCRYSTAL 50 MG CAPSULE (FP) ONE (23:14)
[2017-09-16] MEDS ORDERED: SIMETHICONE 80 MG TAB.CHEW (FP) ONE (23:14)
[2017-09-16] MEDS ORDERED: NITROFURANTOIN MACROCRYSTAL 50 MG CAPSULE (FP) PO SCH (23:15)
[2017-09-16 23:46] VITALS: BP 118/72
[2017-09-17 00:11] LABS: LIPASE 134 U/L (73-393)
--- NOTE | 2017-09-18 00:36 | PDOC ---
Patient Follow-up (Call Back) - Post ED Follow - Up Condition at time of discharge: Good Disposition at time of original discharge: HOME Reason for Call Back: Abnwl. Lab Signs/Symptoms Improved: No (this patient states that she continues to have pain ) - Disposition Additional Instructions/Notes: Because of persistence of abdominal pain and positive blood culture ( one bottle ), patient should be reevaluated. This was communicated to the patient. She states that she cannot come in to the ER at this time for can come in tomorrow when her "daughter is in school".
== END 2017-09-16 23:57 | disposition home or self-care (01) ==
LOC: FER 21:14
PROC: 3E033GC Introduction of Other Therapeutic Substance into Peripheral Vein, Percutaneous Approach (ICD-10-PCS; principal; 2017-09-16)
PROC: 3E0337Z Introduction of Electrolytic and Water Balance Substance into Peripheral Vein, Percutaneous Approach (ICD-10-PCS; 2017-09-16)
DX: N30.00 Acute cystitis without hematuria (principal); R10.13 Epigastric pain; J45.909 Unspecified asthma, uncomplicated; R01.1 Cardiac murmur, unspecified; I25.2 Old myocardial infarction
CPT/HCPCS: 36415; 76700-TC; 80053; 81003; 81015; 83690; 84703; 85025; 87040; 87086; 87186; 99282-25; J7030

== ENCOUNTER 2017-09-18 11:24 | Emergency (ER) | payer OTHER ==
[2017-09-18 11:35] VITALS: BP 142/90; PULSE 103; TEMP 98.6; BMI 34.4
[2017-09-18] MEDS ORDERED: ACETAMINOPHEN 1000 MG/100 ML VIAL (NON FORMULARY) IVPB ONE (11:39)
[2017-09-18] MEDS ORDERED: SODIUM CHLORIDE 1,000 ML IV STA (11:39)
[2017-09-18] MEDS ORDERED: PANTOPRAZOLE SODIUM 40 MG VIAL IVPUSH ONE (11:39)
[2017-09-18] MEDS ORDERED: FAMOTIDINE IV 20 MG/12 ML VIAL IVPUSH SCH (11:45)
[2017-09-18] MEDS ORDERED: ACETAMINOPHEN INJECTION 100 ML IVPB ONE (11:46)
[2017-09-18] MEDS ORDERED: PANTOPRAZOLE SODIUM 40 MG VIAL ONE (11:47)
[2017-09-18] MEDS ORDERED: FAMOTIDINE 20 MG/50 ML IVPB 20 MG/50 ML MG IVPB ONE (11:47)
--- NOTE | 2017-09-18 11:54 | PDOC ---
History of Present Illness - General Chief Complaint: Revisit, Lab Variance Stated Complaint: REVISIT FOR ABNORMAL LAB Time Seen by Provider: 09/18/17 11:26 History Source: Patient Exam Limitations: No Limitations - History of Present Illness Initial Comments: 09/18/17 11:55 27-year-old female patient with past medical history obesity, asthma presents with persistent epigastric pain. The patient was called in by the overnight physician, Dr. Sandoval, for one bottle positive for gram-positive cocci in clusters. The patient had agreed to return here for an evaluation. The patient denies any fevers or chills and stated that her pain has overall improved but is still persistent. The patient has been having 2 months of intermittent epigastric pain worsened with FOOD. She feels nauseous with it but denies vomiting. She has scheduled an appointment with an oil rigger on September 14 but missed her appointment. The patient was seen here 2 days ago and had an ultrasound performed which demonstrate no acute findings. The patient was placed on antibiotics for urinary tract infection. She does have a history of kidney stones but reports that she has had no ureteral stents since they were taken out. Past History - Past Medical History Allergies/Adverse Reactions: Allergies Allergy/AdvReac Type Severity Reaction Status Date / Time No Known Allergies Allergy Verified 09/16/17 21:16 Home Medications: Ambulatory Orders Nitrofurantoin Macrocrystal [Macrodantin] 100 mg PO BID #14 capsule 09/16/17 Acetaminophen [Tylenol] 650 mg PO Q4H PRN #20 tablet 09/18/17 Mag Hydrox/Al Hydrox/Simeth [Mylanta Suspension -] 30 ml PO Q6H PRN #1 bottle Pantoprazole Sodium [Protonix] 40 mg PO DAILY #30 tablet. 09/18/17 Ranitidine HCl [Zantac] 150 mg PO BID PRN #20 tablet 09/18/17 Asthma: Yes Cardiac Disorders: Yes ([place], [place] 2014) COPD: No Kidney Stones: Yes (STENT) - Surgical History Abdominal Surgery: Yes - Immunization History Immunization Up to Date: Yes - Suicide/Smoking/Psychosocial Hx Smoking Status: Yes Smoking History: Never smoked Have you smoked in the past 12 months: No Number of Cigarettes Smoked Daily: 5 'Breaking Loose' booklet given: 03/15/17 Hx Alcohol Use: No Drug/Substance Use Hx: No Substance Use Type: None Review of Systems - Review of Systems Able to Perform ROS?: Yes Comments:: 09/18/17 11:57 GENERAL/CONSTITUTIONAL: No fever, weakness. HEAD, EYES, EARS, NOSE AND THROAT: No change in vision. No ear pain or discharge. No sore throat. CARDIOVASCULAR: No chest pain or shortness of breath. RESPIRATORY: No cough, wheezing, or hemoptysis. GASTROINTESTINAL: +abdominal pain. No nausea, vomiting, diarrhea, or decreased PO intolerance. GENITOURINARY: No dysuria, frequency, or change in urination. MUSCULOSKELETAL: No joint or muscle swelling or pain. No neck or back pain. SKIN: No rash NEUROLOGIC: No headache, vertigo, loss of consciousness, or change in strength/ sensation. ENDOCRINE: No increased thirst. No abnormal weight change. HEMATOLOGIC/LYMPHATIC: No anemia, easy bleeding, or history of blood clots. ALLERGIC/IMMUNOLOGIC: No hives or skin allergy. *Physical Exam - Vital Signs Last Vital Signs Temp Pulse Resp BP Pulse Ox 98.6 F 103 H 16 142/90 100 09/18/17 11:26 09/18/17 11:26 09/18/17 11:26 09/18/17 11:26 09/18/17 11:26 - Physical Exam Comments: 09/18/17 11:58 GENERAL: Awake, alert, and fully oriented, in no acute distress. +obese. HEAD: No signs of trauma EYES: PERRLA, EOMI, sclera anicteric, conjunctiva clear ENT: Auricles normal inspection, hearing grossly normal, nares patent NECK: Normal ROM, supple LUNGS: Breath sounds equal, clear to auscultation bilaterally. No wheezes, and no crackles HEART: Regular rate and rhythm, normal S1 and S2, no murmurs, rubs or gallops ABDOMEN: +TTP epigastric. Briones sign negative. Soft, No guarding, no rebound. No masses EXTREMITIES: Normal range of motion, no edema. No clubbing or cyanosis. No cords, erythema, or tenderness NEUROLOGICAL: Cranial nerves II through XII grossly intact. Normal speech, normal gait SKIN: Warm, Dry, normal turgor, no rashes or lesions noted. ED Treatment Course - LABORATORY CBC & Chemistry Diagram: 09/18/17 12:00 09/18/17 12:00 - RADIOLOGY Radiology Studies Ordered: Category Date Time Status ABDOMEN & PELVIS CT WITH CONTR [CT] Stat CT Scan 09/18/17 11:39 Ordered Medical Decision Making - Medical Decision Making 09/18/17 11:59 Vital Signs Temp Pulse Resp BP Pulse Ox 98.6 F 103 H 16 142/90 100 09/18/17 11:26 09/18/17 11:26 09/18/17 11:26 09/18/17 11:26 09/18/17 11:26 Given no fevers and with chronicity of symptoms, I suspect the blood culture was likely to be a contaminant. However, given her history, we will obtain a CAT scan the abdomen pelvis. I suspect the patient may have a gastric or duodenal ulcer. We'll initiate GERD medications and reassess. Obtain labs and evaluate for by blood cell count and other abnormalities. If workup is unremarkable, I suspect the patient to be discharged with outpatient follow-up. We'll repeat the blood cultures here. 09/18/17 15:21 Patient's CAT scan demonstrates no evidence of bowel obstruction, acute appendicitis or diverticulitis. No definitive bowel wall thickening. Left adnexal cystic lesions as described. Small volume of nonspecific free fluid may be physiologic or secondary to recently ruptured ovarian cyst. Bilateral L5 spondylosis. Spondyloysis of L5 on S1. CBC, BMP 09/18/17 12:00 09/18/17 12:00 CMP Sodium 137 mmol/L (136-145) 09/18/17 12:00 Potassium 4.2 mmol/L (3.5-5.1) 09/18/17 12:00 Chloride 107 mmol/L (98-107) 09/18/17 12:00 Carbon Dioxide 25 mmol/L (22-28) 09/18/17 12:00 Anion Gap 5 (8-16) L 09/18/17 12:00 BUN 12 mg/dl (7-18) D 09/18/17 12:00 Creatinine 0.9 mg/dl (0.6-1.3) 09/18/17 12:00 Creat Clearance w eGFR > 60 (>60) 09/18/17 12:00 Random Glucose 96 mg/dl (74-106) 09/18/17 12:00 Calcium 8.7 mg/dl (8.4-10.2) 09/18/17 12:00 Total Bilirubin 0.2 mg/dl (0.2-1.0) D 09/18/17 12:00 AST 19 U/L (10-42) 09/18/17 12:00 ALT 13 U/L (10-40) 09/18/17 12:00 Alkaline Phosphatase 63 U/L (32-92) 09/18/17 12:00 Total Protein 6.6 g/dl (6.4-8.3) 09/18/17 12:00 Albumin 3.4 g/dl (3.5-5.0) L 09/18/17 12:00 Lipase 88 U/L (73-393) 09/18/17 12:00 Pt had a negative urine test 2 days ago. Pt given information regarding ovarian cysts. I suspect the patient may have a stomach ulcer or duodenal ulcer. We'll prescribe Protonix prescription as well as GERD medications. I will give a follow-up and referral to a oil rigger here at [facility]. Patient states that she will make an appointment and is aware that she will likely need endoscopy. Patient will continue on her antibiotics for urinary tract infection. Patient reports feeling somewhat better. At this time, I feel the patient is safe to be discharged no with that recent blood culture. The patient is likely with a contaminant and given no fevers and normal white blood cell count, we will send the patient home with follow-up with doctors. I discussed the physical exam findings, ancillary test results and final diagnoses with the patient. I answered all of the patient's questions. The patient was satisfied with the care received and felt comfortable with the discharge plan and treatment plan. The patient will call their primary care physician within 24 hours to arrange follow-up and will return to the Emergency Department with any new, persistant or worsening symptoms. *DC/Admit/Observation/Transfer Diagnosis at time of Disposition: Epigastric abdominal pain - Discharge Dispostion Disposition: HOME Condition at time of disposition: Stable Admit: No - Prescriptions Prescriptions: Acetaminophen [Tylenol] 650 mg PO Q4H PRN #20 tablet PRN Reason: Pain Mag Hydrox/Al Hydrox/Simeth [Mylanta Suspension -] 30 ml PO Q6H PRN #1 bottle PRN Reason: Abdominal Pain Pantoprazole Sodium [Protonix] 40 mg PO DAILY #30 tablet. Ranitidine HCl [Zantac] 150 mg PO BID PRN #20 tablet PRN Reason: GERD - Referrals Referrals: Onesimo Love MD [Primary Care Provider] - Bruno Maria MD [Staff Physician] - - Patient Instructions Printed Discharge Instructions: DI for Abdominal Pain-Adult, DI for Gastroesophageal Reflux Disease (GERD), DI for Ovarian Cyst Additional Instructions: Please follow up with DR. Maria. Call to schedule an appointment. You will likely benefit from an endoscopy. In the meantime, please take the acid reflux medications as prescribed. Bring the copy of the results with you to the doctors. - Post Discharge Activity
[2017-09-18 12:57] LABS: BASO % 0.3 % (0-2.0); EOS % 6.9 % (0-4.5); HEMATOCRIT 38.5 % (32.4-45.2); HEMOGLOBIN 13.2 GM/dl (10.7-15.3); LYMPH % 32.2 % (8-40); MCH 30.7 pg (25.7-33.7); MCHC 34.2 g/dl (32.0-36.0); MEAN PLT VOLUME 9.3 fl (7.5-11.1); MONO % 6.7 % (3.8-10.2); NEUT % 53.9 % (42.8-82.8); PLATELET COUNT 194 K/MM3 (134-434); RBC 4.28 M/mm3 (3.60-5.2); RDW 12.4 % (11.6-15.6); WHITE BLOOD COUNT 3.4 K/mm3 (4.0-10.8)
[2017-09-18 13:02] LABS: ALBUMIN 3.4 g/dl (3.5-5.0); ALK PHOS 63 U/L (32-92); ANION GAP 5 (8-16); BILIRUBIN,TOTAL 0.2 mg/dl (0.2-1.0); BLOOD UREA NITROGEN 12 mg/dl (7-18); CALCIUM 8.7 mg/dl (8.4-10.2); CHLORIDE 107 mmol/L (98-107); CO2 25 mmol/L (22-28); CREATININE 0.9 mg/dl (0.6-1.3); GLUCOSE,RANDOM 96 mg/dl (74-106); POTASSIUM 4.2 mmol/L (3.5-5.1); SGOT/AST 19 U/L (10-42); SGPT/ALT 13 U/L (10-40); SODIUM 137 mmol/L (136-145); TOT PROT 6.6 g/dl (6.4-8.3)
[2017-09-18 13:33] LABS: LIPASE 88 U/L (73-393)
== END 2017-09-18 15:48 | disposition home or self-care (01) ==
LOC: FER 11:24
PROC: 3E033NZ Introduction of Analgesics, Hypnotics, Sedatives into Peripheral Vein, Percutaneous Approach (ICD-10-PCS; principal; 2017-09-18)
PROC: 3E033GC Introduction of Other Therapeutic Substance into Peripheral Vein, Percutaneous Approach (ICD-10-PCS; 2017-09-18)
PROC: 3E0337Z Introduction of Electrolytic and Water Balance Substance into Peripheral Vein, Percutaneous Approach (ICD-10-PCS; 2017-09-18)
DX: R10.13 Epigastric pain (principal); R79.9 Abnormal finding of blood chemistry, unspecified; J45.909 Unspecified asthma, uncomplicated; R01.1 Cardiac murmur, unspecified; I25.2 Old myocardial infarction; E66.9 Obesity, unspecified; Z68.34 Body mass index [BMI] 34.0-34.9, adult
CPT/HCPCS: 36415; 74177-TC; 80053; 83690; 85025; 87040; 96361; 96374; 96375; 99282-25; J0131; J7030

== ENCOUNTER 2018-01-27 13:36 | Emergency (ER) | payer OTHER ==
[2018-01-27 13:39] VITALS: BP 136/81; PULSE 98; TEMP 98; BMI 34.4
--- NOTE | 2018-01-27 14:28 | PDOC ---
History of Present Illness - General Chief Complaint: Asthma Stated Complaint: CHEST PAIN Time Seen by Provider: 01/27/18 14:20 - History of Present Illness Initial Comments: 28-year-old female with past medical history significant for asthma presents for evaluation of cough 2 days with subjective fever at home. 01/27/18 14:23 Past History - Past Medical History Allergies/Adverse Reactions: Allergies Allergy/AdvReac Type Severity Reaction Status Date / Time No Known Allergies Allergy Verified 01/27/18 13:39 Home Medications: Ambulatory Orders Albuterol Sulfate Inhaler - [Ventolin Hfa Inhaler -] 1 - 2 inh PO Q4H 01/27/18 Amox-Tr/K Cl [Augmentin - 875Mg Tablet] 1 tab PO BID #20 tablet 01/27/18 Budesonide [Rhinocort Allergy] 1 spray NS ONCE #1 spray.pump 01/27/18 Cetirizine HCl/Pseudoephedrine [Zyrtec-D Tablet] 1 each PO DAILY #30 tab.er.12h 01/27/18 Methylprednisolone [Medrol Dose Justice] 4 mg PO ASDIR #21 tablet 01/27/18 Asthma: Yes Cardiac Disorders: Yes ([place], [place] 2014) COPD: No Kidney Stones: Yes (STENT) - Surgical History Abdominal Surgery: Yes - Immunization History Immunization Up to Date: Yes - Suicide/Smoking/Psychosocial Hx Smoking Status: Yes Smoking History: Current every day smoker Have you smoked in the past 12 months: No Number of Cigarettes Smoked Daily: 6 Information on smoking cessation initiated: No 'Breaking Loose' booklet given: 03/15/17 Hx Alcohol Use: No Drug/Substance Use Hx: No Substance Use Type: None Review of Systems - Review of Systems Constitutional: Yes: Fever Respiratory: Yes: Cough All Other Systems: Reviewed and Negative *Physical Exam - Vital Signs Last Vital Signs Temp Pulse Resp BP Pulse Ox 98 F 98 H 18 136/81 100 01/27/18 13:37 01/27/18 13:37 01/27/18 13:37 01/27/18 13:37 01/27/18 13:37 - Physical Exam Comments: HEAD: NC/AT EYES: Conjuntiva clear Ears: Canals and TM's normal NOSE: No clear discharge with injected erythemic turbinates THROAT: Moist mucous membrances, oral pharanx clear, uvula midline NECK: Supple without adenopathy CARDIAC: S1 S2 LUNGS: CTA Full and Equal breath sounds ABDOMEN: Soft NT ND MS: Full ROM in all joints without edema NEUROLOGIC: No gross sensory or motor deficits, NVID SKIN: Normal color and temperature no lesions or rashes 01/27/18 14:23 Medical Decision Making - Medical Decision Making We'll treat this sinusitis with Augmentin nasal spray and steroids 01/27/18 14:24 *DC/Admit/Observation/Transfer Diagnosis at time of Disposition: Sinusitis - Discharge Dispostion Disposition: HOME Condition at time of disposition: Stable Decision to Admit order: No - Referrals Referrals: Onesimo Love MD [Primary Care Provider] - - Patient Instructions Printed Discharge Instructions: DI for Sinusitis, Sinusitis Additional Instructions: Return to the emergency room should symptoms worsen or go unresolved. Please take the medication as directed. Follow-up with your primary care physician one to 2 days for further evaluation and treatment options - Post Discharge Activity
--- NOTE | 2018-01-30 16:44 | EKG ---
Test Reason : Blood Pressure : / mmHG Vent. Rate : 097 BPM Atrial Rate : 097 BPM P-R Int : 128 ms QRS Dur : 084 ms QT Int : 344 ms P-R-T Axes : 057 044 051 degrees QTc Int : 436 ms NORMAL SINUS RHYTHM CANNOT RULE OUT ANTERIOR INFARCT (CITED ON OR BEFORE 24-MAR-2015) ABNORMAL ECG WHEN COMPARED WITH ECG OF 28-FEB-2016 15:55, NO SIGNIFICANT CHANGE WAS FOUND Confirmed by Zion Mcnulty ([id number]) on 01/30/2018 4:43:57 PM Referred By: Confirmed By:Zion Mcnulty
== END 2018-01-27 14:31 | disposition home or self-care (01) ==
LOC: JERFT 13:36
DX: J32.9 Chronic sinusitis, unspecified (principal); J45.909 Unspecified asthma, uncomplicated; R01.1 Cardiac murmur, unspecified; I25.2 Old myocardial infarction; Z87.442 Personal history of urinary calculi; Z96.0 Presence of urogenital implants; F17.210 Nicotine dependence, cigarettes, uncomplicated
CPT/HCPCS: 93005; 93010; 99281-25

== ENCOUNTER 2018-10-30 23:02 | Emergency (ER) | payer OTHER | END 2018-10-31 01:35 | disposition home or self-care (01) | LOC: FER 10-31 01:35 ==

== ENCOUNTER 2019-03-08 19:04 | Emergency (ER) | payer OTHER ==
[2019-03-08 19:15] VITALS: BP 124/77; PULSE 90; TEMP 98.7; BMI 34.4
[2019-03-08] MEDS ORDERED: SODIUM CHLORIDE 1,000 ML IV ONE (19:38)
--- NOTE | 2019-03-08 19:40 | PDOC ---
Documentation entered by Sandra Montalvo SCRIBE, acting as scribe for Hussain Gruber MD. Hussain Gruber MD: This documentation has been prepared by the Katia carvalho Nirvannie, SCRIBE, under my direction and personally reviewed by me in its entirety. I confirm that the documentation accurately reflects all work, treatment, procedures, and medical decision making performed by me. History of Present Illness - General Chief Complaint: Nausea Stated Complaint: ABD PAIN/WEAKNESS/SORE THROAT Time Seen by Provider: 03/08/19 19:20 History Source: Patient Exam Limitations: No Limitations - History of Present Illness Initial Comments: 03/08/19 19:39 The patient is a 29 year old female, with a significant past medical history of asthma and heart murmur, who presents to the emergency department with, 4 days of generalized malaise, headache, and abdominal pain. Patient describes her abdominal pain as sharp with associated nausea without emesis and occurring while eating subsequently causing decreased PO intake. She notes attempting to take DayQuil and NyQuil, without relief, prompting her arrival to the ED. She denies any recent travel or new foods. She denies recent diarrhea or constipation. She denies recent dysuria, frequency, urgency or hematuria. She denies recent chest pain or shortness of breath. PAST MEDICAL HISTORY: Asthma. PAST SURGICAL HISTORY: no significant history FAMILY HISTORY: no pertinent history SOCIAL HISTORY: Pt lives with family and is employed. Smoker. MEDICATIONS: reviewed ALLERGIES: As per nursing notes General: +Generalized malaise. No fevers or chills, no weight loss HEENT: No change in vision. No sore throat,. No ear pain CardioVascular: No chest pain or shortness of breath Respiratory:No cough, or wheezing. Gastrointestinal: +Abdominal pain. + Nausea. no vomiting, diarrhea or constipation, No rectal bleeding Genitourinary: No dysuria, hematuria, or frequency Musculoskeletal: No joint or muscle pain or swelling Neurologic: No headache, vertigo, dizziness or loss of consciousness Psychiatric: nor depression Skin: No rashes or easy bruising Endocrine: no increased thirst or abnormal weight change Allergic: no skin or latex allergy All other systems reviewed and normal General: Well-nourished well-developed individual, no acute distress HEENT: Throat: +Dry mucous membranes. Tonsils normal, no erythema or exudate Neck: Supple, no meningeal signs, no lymphadenopathy Eyes:Pupils equal reactive and round, extraocular motion intact Chest: Nontender to palpation Cardiac: S1-S2 normal, regular rate and rhythm, no murmurs rubs or gallops Respiratory: Lungs clear to auscultation bilateral Abdomen: Soft, nondistended, normal bowel sounds, Mild tenderness with deep palpation of the epigastric area. Extremities: Warm, dry, no cyanosis, clubbing, or edema Skin: No rashes Neuro: Alert and oriented x3, nonfocal exam, grossly intact, normal gait Psych: Normal mood and affect Assessment and plan: This is a 29-year-old female comes in complaining of body aches, headache, some mild epigastric abdominal pain and decreased appetite. Patient also complaining of sore throat and some mild congestion. Patient has had symptoms for 3 days. Patient does appear to be a little dehydrated work-up initiated and patient given 1 L of IV fluids CBC and comp were sent UA and urine was also sent. 03/08/19 20:13 Patient feels better after Reglan and a Yusuf of IV fluids. Patient does have a urinary tract infection for which she was started back on Bactrim. Patient discharged we will follow-up with her primary care doctor. Past History - Past Medical History Allergies/Adverse Reactions: Allergies Allergy/AdvReac Type Severity Reaction Status Date / Time No Known Allergies Allergy Verified 10/30/18 23:07 Home Medications: Ambulatory Orders Albuterol Sulfate Inhaler - [Ventolin Hfa Inhaler -] 1 - 2 inh PO Q4H PRN Sulfamethoxazole/Trimethoprim [Bactrim DS -] 1 tab PO BID #28 tablet 03/08/19 Asthma: Yes Cardiac Disorders: Yes ([place]UR[place]UR, [place] 2014) COPD: No Kidney Stones: Yes (STENT) - Surgical History Abdominal Surgery: Yes - Immunization History Immunization Up to Date: Yes - Psycho Social/Smoking Cessation Hx Smoking Status: Yes Smoking History: Never smoked Have you smoked in the past 12 months: Yes Number of Cigarettes Smoked Daily: 5 'Breaking Loose' booklet given: 03/15/17 Hx Alcohol Use: No Drug/Substance Use Hx: No Substance Use Type: None *Physical Exam - Vital Signs Last Vital Signs Temp Pulse Resp BP Pulse Ox 98.7 F 90 16 124/77 100 03/08/19 19:12 03/08/19 19:12 03/08/19 19:12 03/08/19 19:12 03/08/19 19:12 ED Treatment Course - LABORATORY CBC & Chemistry Diagram: 03/08/19 19:40 03/08/19 19:40 Discharge - Discharge Information Problems reviewed: Yes Clinical Impression/Diagnosis: Cystitis Condition: Stable - Admission No - Additional Discharge Information Prescriptions: Sulfamethoxazole/Trimethoprim [Bactrim DS -] 1 tab PO BID #28 tablet - Follow up/Referral - Patient Discharge Instructions Additional Instructions: Tylenol or Motrin as needed for fever or body aches.. Your urine shows that you have an infection in your urine take Bactrim 1 tablet twice a day for 7 days for the infection. Return to the emergency department immediately with ANY new, persistent or worsening symptoms. Continue any medications as previously prescribed by your physician. You should follow up with your primary doctor as soon as possible regarding today's emergency department visit. . Please make sure your doctor reviews the results of your emergency evaluation. Thank you for coming to the Emergency Department today for your care. It was a pleasure to see you today. Please note that your evaluation is INCOMPLETE until you follow-up with your doctor. - Post Discharge Activity
[2019-03-08] MEDS ORDERED: METOCLOPRAMIDE HCL 10 MG TABLET (FP) PO ONE ×2 (19:42→19:45)
[2019-03-08 19:57] LABS: BASO % 0.2 % (0-2.0); EOS % 5.3 % (0-4.5); HEMATOCRIT 39.3 % (32.4-45.2); HEMOGLOBIN 12.8 GM/dl (10.7-15.3); LYMPH % 29.6 % (8-40); MCH 30.5 pg (25.7-33.7); MCHC 32.6 g/dl (32.0-36.0); MEAN CELL VOLUME 93.8 fl (80-96); MEAN PLT VOLUME 9.1 fl (7.5-11.1); MONO % 6.8 % (3.8-10.2); NEUT % 58.1 % (42.8-82.8); PLATELET COUNT 197 K/MM3 (134-434); RBC 4.19 M/mm3 (3.60-5.2); RDW 13.4 % (11.6-15.6); WHITE BLOOD COUNT 6.3 K/mm3 (4.0-10.8)
[2019-03-08] MEDS ORDERED: SULFAMETHOXAZOLE/TRIMETHOPRIM 800MG/160MG D.S. TABLET PO STA (20:07)
[2019-03-08 20:11] LABS: ALBUMIN 3.8 g/dl (3.4-5.0); BILIRUBIN,TOTAL 0.8 mg/dl (0.2-1); CALCIUM 8.9 mg/dl (8.5-10); CREATININE 0.9 mg/dl (0.55-1.3); POTASSIUM 4.8 mmol/L (3.5-5.1); TOT PROT 7.1 g/dl (6.4-8.2)
[2019-03-08] MEDS ORDERED: SULFAMETHOXAZOLE/TRIMETHOPRIM 800MG/160MG D.S. TABLET ONE (20:21)
[2019-03-08 20:24] LABS: EPITHELIAL CELLS FEW /hpf
== END 2019-03-08 21:55 | disposition home or self-care (01) ==
LOC: FER 19:04
PROC: 3E0337Z Introduction of Electrolytic and Water Balance Substance into Peripheral Vein, Percutaneous Approach (ICD-10-PCS; principal; 2019-03-08)
DX: N30.90 Cystitis, unspecified without hematuria (principal); R01.1 Cardiac murmur, unspecified; J45.909 Unspecified asthma, uncomplicated; I25.2 Old myocardial infarction
CPT/HCPCS: 36415; 80053; 81003; 81015; 84703; 85025; 87086; 99283-25; J7030

== ENCOUNTER 2020-05-12 00:22 | Emergency (ER) | payer OTHER ==
[2020-05-12 00:33] VITALS: BP 122/83; PULSE 99; TEMP 98.7; BMI 42.5
[2020-05-12] MEDS ORDERED: KETOROLAC TROMETHAMINE 30 MG/1 ML VIAL IVPUSH ONE (00:48)
[2020-05-12] MEDS ORDERED: KETOROLAC TROMETHAMINE 30 MG/1 ML VIAL ONE (01:06)
[2020-05-12 01:53] LABS: CHLORIDE 107 mmol/L (98-107); SODIUM 140 mmol/L (136-145)
[2020-05-12 01:54] LABS: BASO % 0.7 % (0-2.0); EOS % 8.1 % (0-4.5); HEMATOCRIT 32.9 % (32.4-45.2); HEMOGLOBIN 10.9 GM/dL (10.7-15.3); LYMPH % 33.4 % (8-40); MCH 29.6 pg (25.7-33.7); MCHC 33.1 g/dl (32.0-36.0); MEAN CELL VOLUME 89.4 fl (80-96); MEAN PLT VOLUME 10.1 fl (7.5-11.1); MONO % 5.8 % (3.8-10.2); PLATELET COUNT 195 K/MM3 (134-434); RBC 3.68 M/mm3 (3.60-5.2)
[2020-05-12 01:55] LABS: CALCIUM 8.3 mg/dL (8.5-10.1)
[2020-05-12 01:56] LABS: ALBUMIN 3.7 g/dl (3.4-5.0); ANION GAP 8 MMOL/L (8-16); BLOOD UREA NITROGEN 9.6 mg/dL (7-18); CO2 25 mmol/L (21-32); GLUCOSE,RANDOM 112 mg/dL (74-106)
[2020-05-12 01:59] LABS: CREATININE 1.3 mg/dL (0.55-1.3); SGOT/AST 28 U/L (15-37)
[2020-05-12 02:00] LABS: TOT PROT 7.6 g/dl (6.4-8.2)
[2020-05-12 02:02] LABS: ALK PHOS 74 U/L (45-117)
[2020-05-12 02:05] LABS: BILIRUBIN,TOTAL 0.2 mg/dL (0.2-1); SGPT/ALT 30 U/L (13-61)
== END 2020-05-12 03:54 | disposition home or self-care (01) ==
LOC: FER 00:22
PROC: 3E0233Z Introduction of Anti-inflammatory into Muscle, Percutaneous Approach (ICD-10-PCS; principal; 2020-05-12)
DX: R07.89 Other chest pain (principal)
CPT/HCPCS: 36415; 71275-TC; 80053; 81025; 82550; 84484; 85025; 85379; 93005; 99285-25; Q9967

== ENCOUNTER → 2020-06-17 | Day surgery (SDC) | payer OTHER | END | disposition home or self-care (01) | LOC: JRADUS-SUR 13:40 | PROVIDERS: ATTEND Internal Medicine Hematology & Oncology | PROC: 07D53ZX Extraction of Right Axillary Lymphatic, Percutaneous Approach, Diagnostic (ICD-10-PCS; principal; 2020-06-17) | DX: D36.0 Benign neoplasm of lymph nodes (principal) | CPT/HCPCS: 19083; 87899; 88307-TC; 88342-TC ==

== ENCOUNTER 2021-09-24 18:36 | Emergency (ER) | payer SELFPAY ==
[2021-09-24 18:50] VITALS: BP 115/85; TEMP 99; BMI 38.9
[2021-09-24 20:10] LABS: HEMATOCRIT 38.2 % (32.4-45.2); HEMOGLOBIN 13.5 G/dL (10.7-15.3); MCH 32.3 pg (25.7-33.7); MCHC 35.3 g/dl (32.0-36.0); MEAN CELL VOLUME 91.6 fl (80-96); MEAN PLT VOLUME 9.3 fl (7.5-11.1); PLATELET COUNT 192.2 10^3/uL (134-434); RBC 4.17 10^6/uL (3.60-5.2); RDW 13.9 % (11.6-15.6); WHITE BLOOD COUNT 6.1 10^3/uL (4.0-10.8)
[2021-09-24 20:13] LABS: HCG,QUALITATIVE URINE Negative
[2021-09-24 20:14] VITALS: PULSE 84
[2021-09-24 20:14] LABS: EPITHELIAL CELLS FEW /hpf
[2021-09-24 20:18] LABS: INR 1.1 (0.83-1.09); PROTHROMBIN TIME (PATIENT) 12.7 SEC (9.7-13.0)
[2021-09-24 20:26] LABS: ALBUMIN 3.5 g/dl (3.4-5.0); ALK PHOS 63 U/L (45-117); ANION GAP 6 MMOL/L (8-16); BILIRUBIN,TOTAL 0.3 mg/dl (0.2-1); CALCIUM 9.1 mg/dl (8.5-10); CHLORIDE 108 mmol/L (98-107); CO2 25 mmol/L (21-32); CREATININE 0.9 mg/dl (0.55-1.3); GLUCOSE,RANDOM 84 mg/dl (74-106); SGOT/AST 14 U/L (15-37); SGPT/ALT 14 U/L (13-61); SODIUM 139 mmol/L (136-145); TOT PROT 6.5 g/dl (6.4-8.2)
[2021-09-24 20:47] LABS: PLATELET ESTIMATE ADEQUATE
[2021-09-24] MEDS ORDERED: ONDANSETRON 4 MG/2 ML VIAL IVPUSH ONE (23:52)
[2021-09-24] MEDS ORDERED: ONDANSETRON 4 MG/2 ML VIAL ONE (23:54)
== END 2021-09-25 00:03 | disposition home or self-care (01) ==
LOC: FER 18:36
PROC: 3E033GC Introduction of Other Therapeutic Substance into Peripheral Vein, Percutaneous Approach (ICD-10-PCS; principal; 2021-09-24)
DX: J40 Bronchitis, not specified as acute or chronic (principal)
CPT/HCPCS: 36415; 71275-TC; 80053; 81003; 81015; 82550; 84484; 84703; 85025; 85379; 85610; 87086; 93005; 99285-25; Q9967